=== PATIENT | female | born 1995 | race Caucasian/White ===

== ENCOUNTER 2024-10-06 10:48 | Inpatient (IN) | payer MEDICAID ==
[~2024-10-06] VITALS: Ht 154.9 cm; Wt 55.0 kg
[2024-10-06] MEDS ORDERED: LORazepam 2 MG TABLET PO PRN (12:00)
[2024-10-06] MEDS ORDERED: HALOPERIDOL 5 MG TABLET PO PRN (12:00)
[2024-10-06 15:00] VITALS: BP 119/74; PULSE 65; RESP 17; TEMP 97.3; O2SAT 98
[2024-10-06] MEDS ORDERED: PETROLATUM,WHITE 28 GM JELLY TP PRN (20:15)
[2024-10-06] MEDS ORDERED: GuaiFENesin/D-METHORPHAN [SUGAR-FREE] 200-20MG/10 ML SYRUP UDCUP PO PRN (20:15)
[2024-10-06] MEDS ORDERED: DOCUSATE SODIUM 100 MG CAPSULE PO PRN (20:15)
[2024-10-06] MEDS ORDERED: CloNIDine HCL 0.1 MG TABLET PO PRN (20:15)
[2024-10-06] MEDS ORDERED: ALBUTEROL SULFATE HFA 90 MCG/PUFF 8 GM INHALER IH PRN (20:15)
[2024-10-06] MEDS ORDERED: NICOTINE 14 MG/24 HOUR PATCH TD PRN (20:15)
[2024-10-06] MEDS ORDERED: LOPERAMIDE HCL 2 MG CAPSULE PO PRN (20:15)
[2024-10-06] MEDS ORDERED: ONDANSETRON 4 MG TABLET PO PRN (20:15)
[2024-10-06 20:34] VITALS: BP 131/70; PULSE 60; RESP 16; TEMP 97.5; O2SAT 98
[2024-10-06] MEDS: ZOLPIDEM TARTRATE 10 MG TABLET PO PRN (23:09)
[2024-10-07 07:58] VITALS: BP 115/64; PULSE 78; RESP 16; TEMP 97.5; O2SAT 99
[2024-10-07 09:09] LABS: BASOPHILS % (AUTO) 0.4 % (0.0-2.0); EOSINOPHILS % (AUTO) 2.7 % (1.0-6.0); HEMATOCRIT 40.3 % (36-46); HEMOGLOBIN 13.1 g/dL (12.0-16.0); LYMPHOCYTES # (AUTO) 1.6 K/uL (1.0-4.8); LYMPHOCYTES % (AUTO) 22.9 % (22.0-44.0); MEAN CORPUSCULAR HGB CONC 32.6 G/dL (31.0-37.0); MEAN CORPUSCULAR VOLUME 89 fL (80-100); MONOCYTES # (AUTO) 0.5 K/uL (0.1-1.0); MONOCYTES % (AUTO) 7.1 % (2.0-9.0); NEUTROPHILS # (AUTO) 4.6 K/uL (1.8-7.7); NEUTROPHILS % (AUTO) 66.9 % (40.0-70.0); PLATELET COUNT (AUTO) 330 K/uL (150-450); RED BLOOD CELL COUNT(AUTO) 4.54 MIL/uL (4.00-5.20); RED CELL DISTRIBUTION WIDTH 16.1 % (11.5-14.5); WHITE BLOOD COUNT (AUTO) 6.9 K/uL (4.5-11.0)
[2024-10-07 09:20] LABS: HEMOGLOBIN A1C 5.4 % (3.8-5.6)
[2024-10-07 09:23] VITALS: BP 115/64; PULSE 78; RESP 16; TEMP 97.5; O2SAT 99
[2024-10-07 09:25] LABS: ANION GAP 9 mmol/L (8-16); CARBON DIOXIDE 30 mmol/L (22-29); CHLORIDE 102 mmol/L (98-107); POTASSIUM 4.5 mmol/L (3.5-5.1); SODIUM SERUM 141 mmol/L (136-145)
[2024-10-07 09:57] LABS: ALANINE AMINOTRANSFERASE 40 U/L (12-78); ALKALINE PHOSPHATASE 73 U/L (46-116); ASPARTATE AMINOTRANSFERASE 37 U/L (15-37); CALCIUM, TOTAL 9.6 mg/dL (8.8-10.5); CHOL/HDL RATIO 1.7 (3.9-5.7); CHOLESTEROL 234 mg/dL (131-200); CREATININE 0.57 mg/dL (0.60-1.30); FREE T4 (FREE THYROXINE) 0.92 ng/dL (0.76-1.46); GLOMERULAR FILTR. RATE CALC > 60 mL/min (>60); GLUCOSE,RANDOM 110 mg/dL (70-110); HCG,QUANTITATIVE 1 mIU/mL (0-6); HDL CHOLESTEROL 134 mg/dL (40-60); LDL CHOL (CALC.) 79 mg/dL (0-130); THYROID STIMULATING HORMONE 0.87 uIU/mL (0.36-3.74); TRIGLYCERIDES 105 mg/dL (15-150); UREA NITROGEN, BLOOD 11 mg/dL (7-18)
[2024-10-07 10:21] LABS: BILIRUBIN,TOTAL 0.7 mg/dL (0.1-1.0); T4 (THYROXINE) 9.4 mcg/dL (4.7-13.3)
[2024-10-07] MEDS: RisperiDONE 0.5 MG TABLET PO SCH (16:35)
[2024-10-07 21:02] VITALS: BP 121/80; PULSE 71; RESP 18; TEMP 98.1; O2SAT 99
[2024-10-08] MEDS: ACETAMINOPHEN 325 MG TABLET PO PRN (00:22)
[2024-10-08 00:26] VITALS: BP 118/76; PULSE 76; RESP 18; TEMP 98; O2SAT 98
[2024-10-08 01:26] VITALS: RESP 18
[2024-10-08 08:13] VITALS: BP 117/72; PULSE 80; RESP 16; TEMP 97.4; O2SAT 98
[2024-10-08 09:24] LABS: APPEARANCE,URINE CLEAR (CLEAR); BILIRUBIN,URINE NEGATIVE (NEGATIVE); COLOR,URINE COLORLESS (YELLOW); GLUCOSE, URINE (UA) NEGATIVE (NEGATIVE); KETONES,URINE NEGATIVE (NEGATIVE); LEUKOCYTE ESTERASE ,URINE NEGATIVE (NEGATIVE); NITRATE,URINE NEGATIVE (NEGATIVE); OCCULT BLOOD,URINE NEGATIVE (NEGATIVE); PROTEIN,URINE NEGATIVE (NEGATIVE); SPECIFIC GRAVITIY, URINE 1.004 (1.003-1.030); UROBILINOGEN,URINE <=1.0 mg/dL (<=1.0)
[2024-10-08 09:31] LABS: AMPHET/METH SCREEN,URINE NEGATIVE (NEGATIVE); BARBITURATE SCREEN, URINE NEGATIVE (NEGATIVE); BENZODIAZEPINES SCREEN,URINE NEGATIVE (NEGATIVE); CANNABINOID SCREEN,URINE POSITIVE (NEGATIVE); COCAINE SCREEN,URINE NEGATIVE (NEGATIVE); METHADONE SCREEN, URINE NEGATIVE (NEGATIVE); OPIATE SCREEN,URINE NEGATIVE (NEGATIVE); PHENCYCLIDINE SCREEN,URINE NEGATIVE (NEGATIVE)
[2024-10-08 09:37] LABS: ALCOHOL, URINE DRUG SCREEN NEGATIVE (NEGATIVE)
[2024-10-08] MEDS: MAG HYDROX/ALUMINUM HYD/SIMETH ES 30 ML SUSPENSION UDCUP PO PRN (12:59)
[2024-10-08 15:16] VITALS: RESP 18; O2SAT 98
[2024-10-08 16:16] VITALS: RESP 17; O2SAT 97
[2024-10-08 20:00] VITALS: BP 114/75; PULSE 69; RESP 17; TEMP 97.7; O2SAT 99
[2024-10-09 08:03] VITALS: BP 135/73; PULSE 79; RESP 16; TEMP 97.4; O2SAT 98
[2024-10-09] MEDS: MAGNESIUM HYDROXIDE SUSPENSION 30 ML UDCUP PO PRN (08:27)
[2024-10-09] MEDS: MELATONIN 3 MG TABLET PO PRN (20:42)
[2024-10-09 23:30] VITALS: RESP 17
[2024-10-10 06:28] VITALS: BP 121/93; PULSE 72; RESP 17; TEMP 98.1; O2SAT 99
[2024-10-10 07:32] VITALS: RESP 17
[2024-10-10 08:12] VITALS: BP 122/74; PULSE 66; RESP 16; TEMP 97.6; O2SAT 97
== END 2024-10-10 12:30 | disposition left against medical advice (07) | DRG 751 ==
LOC: B3A 15:02
PROVIDERS: ADMIT Psychiatry & Neurology Child & Adolescent Psychiatry; ATTEND Psychiatry & Neurology Child & Adolescent Psychiatry
PROC: GZ56ZZZ Individual Psychotherapy, Supportive (ICD-10-PCS; 2024-10-07)
PROC: GZ52ZZZ Individual Psychotherapy, Cognitive (ICD-10-PCS; principal; 2024-10-08)
DX: F29 Unspecified psychosis not due to a substance or known physiological condition (principal); F10.10 Alcohol abuse, uncomplicated; F12.90 Cannabis use, unspecified, uncomplicated; F41.9 Anxiety disorder, unspecified; Z53.29 Procedure and treatment not carried out because of patient's decision for other reasons; Y90.9 Presence of alcohol in blood, level not specified; Z88.8 Allergy status to other drugs, medicaments and biological substances; Z88.6 Allergy status to analgesic agent; Z79.899 Other long term (current) drug therapy
CPT/HCPCS: 80053; 80061; 80307; 81003; 83036; 84436; 84439; 84443; 84702; 85025; 87491; 87591

== ENCOUNTER 2024-10-21 19:12 | Inpatient (IN) | payer MEDICAID ==
[~2024-10-21] VITALS: Ht 157.5 cm; Wt 59.7 kg
[2024-10-21 19:58] LABS: COVID AG,FIA SOURCE NASAL SWAB
[2024-10-21 20:16] LABS: SARS-COV2 (COVID) ANTIGEN,FIA Negative (Negative)
[2024-10-21 20:24] LABS: BASOPHILS % (AUTO) 0.3 % (0.0-2.0); EOSINOPHILS % (AUTO) 2.7 % (1.0-6.0); HEMATOCRIT 32.6 % (36-46); HEMOGLOBIN 10.6 g/dL (12.0-16.0); LYMPHOCYTES # (AUTO) 1.2 K/uL (1.0-4.8); LYMPHOCYTES % (AUTO) 23.5 % (22.0-44.0); MEAN CORPUSCULAR HEMOGLOBIN 28.7 pg (26.0-34.0); MEAN CORPUSCULAR HGB CONC 32.6 G/dL (31.0-37.0); MEAN CORPUSCULAR VOLUME 88 fL (80-100); MONOCYTES # (AUTO) 0.5 K/uL (0.1-1.0); MONOCYTES % (AUTO) 9.1 % (2.0-9.0); NEUTROPHILS # (AUTO) 3.2 K/uL (1.8-7.7); NEUTROPHILS % (AUTO) 64.4 % (40.0-70.0); PLATELET COUNT (AUTO) 338 K/uL (150-450); RED BLOOD CELL COUNT(AUTO) 3.71 MIL/uL (4.00-5.20); RED CELL DISTRIBUTION WIDTH 17.8 % (11.5-14.5)
[2024-10-21 20:32] LABS: ANION GAP 11 mmol/L (8-16); CARBON DIOXIDE 25 mmol/L (22-29); CHLORIDE 107 mmol/L (98-107); CREATININE 0.68 mg/dL (0.60-1.30); GLOMERULAR FILTR. RATE CALC > 60 mL/min (>60); GLUCOSE,RANDOM 95 mg/dL (70-110); POTASSIUM 3.2 mmol/L (3.5-5.1); SODIUM SERUM 143 mmol/L (136-145); UREA NITROGEN, BLOOD 7 mg/dL (7-18)
[2024-10-21] MEDS ORDERED: haloperidoL 5 MG TABLET PO PRN (22:15)
[2024-10-21] MEDS ORDERED: ZOLPIDEM TARTRATE 10 MG TABLET PO PRN (22:15)
[2024-10-21] MEDS: DiphenhydrAMINE HCL 50 MG/ML VIAL IM ONE (23:36)
[2024-10-21] MEDS: HALOPERIDOL LACTATE 5 MG/ML VIAL IM ONE (23:36)
[2024-10-21] MEDS: LORazepam 2 MG/ML VIAL IM ONE (23:36)
[2024-10-22 01:06] VITALS: O2SAT 100
[2024-10-22] MEDS: POTASSIUM CHLORIDE 20 MEQ ER TABLET PO ONE (03:25)
[2024-10-22 06:28] VITALS: BP 113/60; PULSE 67; RESP 18; TEMP 97.8; O2SAT 97
[2024-10-22 08:56] LABS: APPEARANCE,URINE HAZY (CLEAR); BILIRUBIN,URINE NEGATIVE (NEGATIVE); COLOR,URINE YELLOW (YELLOW); GLUCOSE, URINE (UA) NEGATIVE (NEGATIVE); KETONES,URINE NEGATIVE (NEGATIVE); LEUKOCYTE ESTERASE ,URINE TRACE (NEGATIVE); NITRATE,URINE NEGATIVE (NEGATIVE); OCCULT BLOOD,URINE TRACE (NEGATIVE); PH,URINE 5.5 (5.0-8.0); PH,URINE DRUG SCREEN 5.5 (5.0-8.0); PROTEIN,URINE TRACE mg/dL (NEGATIVE); SPECIFIC GRAVITIY, URINE 1.024 (1.003-1.030); UROBILINOGEN,URINE <=1.0 mg/dL (<=1.0)
[2024-10-22 09:00] LABS: ALCOHOL, URINE DRUG SCREEN POSITIVE (NEGATIVE); AMPHET/METH SCREEN,URINE POSITIVE (NEGATIVE); BARBITURATE SCREEN, URINE NEGATIVE (NEGATIVE); BENZODIAZEPINES SCREEN,URINE POSITIVE (NEGATIVE); CANNABINOID SCREEN,URINE POSITIVE (NEGATIVE); COCAINE SCREEN,URINE NEGATIVE (NEGATIVE); METHADONE SCREEN, URINE NEGATIVE (NEGATIVE); OPIATE SCREEN,URINE NEGATIVE (NEGATIVE); PHENCYCLIDINE SCREEN,URINE NEGATIVE (NEGATIVE)
[2024-10-22 09:08] LABS: BACTERIA,URINE None Seen /HPF (None Seen); RBC,URINE None Seen /HPF (0-2); SQUAMOUS EPITHELIAL CELL,UR Moderate /LPF (None Seen)
[2024-10-22] MEDS: LORazepam 2 MG TABLET PO PRN (09:17)
[2024-10-22] MEDS ORDERED: IBUPROFEN 400 MG TABLET PO PRN (09:30)
[2024-10-22] MEDS ORDERED: LOPERAMIDE HCL 2 MG CAPSULE PO PRN (09:30)
[2024-10-22] MEDS ORDERED: CloNIDine HCL 0.1 MG TABLET PO PRN (09:30)
[2024-10-22] MEDS ORDERED: PETROLATUM,WHITE 28 GM JELLY TP PRN (09:30)
[2024-10-22] MEDS: ALBUTEROL SULFATE HFA 90 MCG/PUFF 8 GM INHALER IH PRN (13:49)
[2024-10-22] MEDS: NICOTINE 14 MG/24 HOUR PATCH TD PRN (16:13)
[2024-10-22] MEDS: ACETAMINOPHEN 325 MG TABLET PO PRN (17:00)
[2024-10-22] MEDS: BENZOCAINE/MENTHOL [CEPACOL] LOZENGE PO PRN (18:50)
[2024-10-22] MEDS: GuaiFENesin/D-METHORPHAN [SUGAR-FREE] 200-20MG/10 ML SYRUP UDCUP PO PRN (19:47)
[2024-10-22 20:09] VITALS: BP 104/65; PULSE 89; RESP 16; TEMP 97; O2SAT 97
[2024-10-22] MEDS: MELATONIN 5 MG TABLET PO PRN (22:21)
[2024-10-23] MEDS: NICOTINE POLACRILEX 2 MG LOZENGE PO PRN (00:51)
[2024-10-23 01:10] VITALS: BP 117/93; PULSE 70; RESP 17; TEMP 97.8; O2SAT 97
[2024-10-23] MEDS: ONDANSETRON 4 MG TABLET PO PRN (02:22)
[2024-10-23 07:58] LABS: BASOPHILS % (AUTO) 0.4 % (0.0-2.0); EOSINOPHILS % (AUTO) 4.2 % (1.0-6.0); HEMATOCRIT 35.1 % (36-46); HEMOGLOBIN 11.8 g/dL (12.0-16.0); LYMPHOCYTES # (AUTO) 1.2 K/uL (1.0-4.8); LYMPHOCYTES % (AUTO) 21.5 % (22.0-44.0); MEAN CORPUSCULAR HEMOGLOBIN 29.2 pg (26.0-34.0); MEAN CORPUSCULAR HGB CONC 33.5 G/dL (31.0-37.0); MEAN CORPUSCULAR VOLUME 87 fL (80-100); MONOCYTES # (AUTO) 0.5 K/uL (0.1-1.0); MONOCYTES % (AUTO) 8.6 % (2.0-9.0); NEUTROPHILS # (AUTO) 3.6 K/uL (1.8-7.7); NEUTROPHILS % (AUTO) 65.3 % (40.0-70.0); PLATELET COUNT (AUTO) 393 K/uL (150-450); RED BLOOD CELL COUNT(AUTO) 4.03 MIL/uL (4.00-5.20); RED CELL DISTRIBUTION WIDTH 17.5 % (11.5-14.5); WHITE BLOOD COUNT (AUTO) 5.6 K/uL (4.5-11.0)
[2024-10-23 08:22] VITALS: BP 128/77; PULSE 82; RESP 16; TEMP 97.2; O2SAT 99
[2024-10-23 08:40] LABS: HEMOGLOBIN A1C 5.2 % (3.8-5.6)
[2024-10-23 08:42] LABS: ALANINE AMINOTRANSFERASE 57 U/L (12-78); ALBUMIN 3.6 g/dL (3.4-5.0); ALKALINE PHOSPHATASE 62 U/L (46-116); ANION GAP 9 mmol/L (8-16); ASPARTATE AMINOTRANSFERASE 91 U/L (15-37); BILIRUBIN,TOTAL 0.7 mg/dL (0.1-1.0); CALCIUM, TOTAL 8.8 mg/dL (8.8-10.5); CARBON DIOXIDE 27 mmol/L (22-29); CHLORIDE 99 mmol/L (98-107); CHOLESTEROL 261 mg/dL (131-200); CREATININE 0.64 mg/dL (0.60-1.30); GLOMERULAR FILTR. RATE CALC > 60 mL/min (>60); GLUCOSE,RANDOM 141 mg/dL (70-110); HDL CHOLESTEROL 133 mg/dL (40-60); LDL CHOL (CALC.) 114 mg/dL (0-130); POTASSIUM 3.6 mmol/L (3.5-5.1); SODIUM SERUM 135 mmol/L (136-145); TOTAL PROTEIN, SERUM 7.6 g/dL (6.4-8.2); TRIGLYCERIDES 68 mg/dL (15-150); UREA NITROGEN, BLOOD 7 mg/dL (7-18)
[2024-10-23 09:08] LABS: THYROID STIMULATING HORMONE 1.52 uIU/mL (0.36-3.74)
[2024-10-23] MEDS ORDERED: DiphenhydrAMINE HCL 50 MG/ML VIAL ONE (11:23)
[2024-10-23] MEDS ORDERED: HALOPERIDOL LACTATE 5 MG/ML VIAL ONE (11:23)
[2024-10-23] MEDS ORDERED: LORazepam 2 MG/ML VIAL ONE (11:23)
[2024-10-23 13:10] VITALS: RESP 18
[2024-10-23 14:10] VITALS: RESP 17
[2024-10-23] MEDS: HALOPERIDOL LACTATE 5 MG/ML VIAL IM ONE (18:44)
[2024-10-23] MEDS: LORazepam 2 MG/ML VIAL IM ONE (18:45)
[2024-10-23] MEDS: DiphenhydrAMINE HCL 50 MG/ML VIAL IM ONE (18:45)
[2024-10-23 20:08] VITALS: BP 107/76; PULSE 80; RESP 18; TEMP 97.4
[2024-10-24 00:58] VITALS: RESP 18
[2024-10-24] MEDS: MAGNESIUM HYDROXIDE SUSPENSION 30 ML UDCUP PO PRN (07:01)
[2024-10-24 08:07] VITALS: RESP 18
[2024-10-24] MEDS: DOCUSATE SODIUM 100 MG CAPSULE PO PRN (08:08)
[2024-10-24 08:45] VITALS: BP 157/93; PULSE 76; RESP 16; TEMP 98; O2SAT 98
[2024-10-24 09:07] VITALS: RESP 16
[2024-10-24] MEDS: DiphenhydrAMINE HCL 25 MG CAPSULE PO PRN (09:30)
[2024-10-24] MEDS ORDERED: DiphenhydrAMINE HCL 50 MG/ML VIAL IM ONE (12:45)
[2024-10-24] MEDS ORDERED: ChlorproMAZINE HCL 50 MG/2 ML AMP IM ONE (12:45)
[2024-10-24] MEDS ORDERED: LORazepam 2 MG/ML VIAL IM ONE (12:45)
[2024-10-24 20:04] VITALS: BP 125/64; PULSE 70; RESP 18; TEMP 97.7; O2SAT 98
[2024-10-25 00:28] VITALS: BP 120/68; PULSE 72; RESP 18; TEMP 97.3; O2SAT 97
[2024-10-25 01:28] VITALS: RESP 18
[2024-10-25 09:30] VITALS: BP 132/88; PULSE 71; RESP 16; TEMP 97.3; O2SAT 98
[2024-10-25] MEDS ORDERED: OLANZapine 5 MG TABLET PO SCH (13:15)
[2024-10-25] MEDS: OLANZapine 5 MG RAPDIS TABLET PO SCH (13:15)
[2024-10-25 20:24] VITALS: BP 133/65; PULSE 79; RESP 18; TEMP 98.1; O2SAT 96
[2024-10-26 04:15] VITALS: RESP 18
[2024-10-26 05:15] VITALS: RESP 16
[2024-10-26 09:21] VITALS: BP 157/64; PULSE 80; RESP 17; TEMP 97
[2024-10-26 13:00] VITALS: RESP 18; O2SAT 97
[2024-10-26 14:00] VITALS: RESP 17
[2024-10-26 20:12] VITALS: BP 117/60; PULSE 70; RESP 17; TEMP 97.7; O2SAT 99
[2024-10-27 08:13] VITALS: BP 138/73; PULSE 76; RESP 18; TEMP 98.3; O2SAT 98
[2024-10-27] MEDS: MAG HYDROX/ALUMINUM HYD/SIMETH ES 30 ML SUSPENSION UDCUP PO PRN (13:37)
[2024-10-27 13:38] VITALS: RESP 18
[2024-10-27 20:37] VITALS: BP 118/79; PULSE 85; RESP 17; TEMP 97.6; O2SAT 98
[2024-10-28 05:12] VITALS: RESP 18
[2024-10-28 08:40] VITALS: BP 109/79; PULSE 78; RESP 18; TEMP 96.8; O2SAT 100
[2024-10-28 09:06] VITALS: RESP 18
[2024-10-28 10:06] VITALS: RESP 17
[2024-10-28 20:28] VITALS: BP 114/74; PULSE 92; RESP 17; TEMP 98.1; O2SAT 99
[2024-10-29 08:21] VITALS: BP 130/79; PULSE 81; RESP 18; TEMP 97.9; O2SAT 99
[2024-10-29 20:51] VITALS: BP 105/60; RESP 22; O2SAT 98
[2024-10-30 06:05] VITALS: RESP 18
[2024-10-30 06:11] LABS: GLUCOMETER DEV NAME(LOC) BV3N.2; GLUCOSE,POINT OF CARE 316 MG/DL (70-110)
[2024-10-30 08:13] VITALS: BP 129/76; PULSE 80; RESP 17; TEMP 98.2; O2SAT 99
== END 2024-10-30 13:03 | disposition left against medical advice (07) | DRG 751 ==
LOC: EMS 19:12 → B3A 10-22 05:25
PROVIDERS: ADMIT Psychiatry & Neurology Psychiatry; ATTEND Psychiatry & Neurology Psychiatry
PROC: GZ56ZZZ Individual Psychotherapy, Supportive (ICD-10-PCS; principal; 2024-10-22)
PROC: GZ58ZZZ Individual Psychotherapy, Cognitive-Behavioral (ICD-10-PCS; 2024-10-22)
PROC: GZHZZZZ Group Psychotherapy (ICD-10-PCS; 2024-10-22)
DX: F29 Unspecified psychosis not due to a substance or known physiological condition (principal); R45.851 Suicidal ideations; Z91.148 Patient's other noncompliance with medication regimen for other reason; D64.9 Anemia, unspecified; E87.6 Hypokalemia; Z20.822 Contact with and (suspected) exposure to COVID-19; Z53.29 Procedure and treatment not carried out because of patient's decision for other reasons; F10.10 Alcohol abuse, uncomplicated; F12.10 Cannabis abuse, uncomplicated; Y90.7 Blood alcohol level of 200-239 mg/100 ml; F32.9 Major depressive disorder, single episode, unspecified; F41.9 Anxiety disorder, unspecified; F15.10 Other stimulant abuse, uncomplicated; Z88.6 Allergy status to analgesic agent; Z79.899 Other long term (current) drug therapy
CPT/HCPCS: 80048; 80053; 80061; 80307; 81001; 82962; 83036; 84443; 84703; 85025; 87081; G0480; J1200; J1630; J2060; J3535; Q0162